=== PATIENT | male | born 1970 | race Hispanic/Latino ===

== ENCOUNTER → 2018-11-15 | Day surgery (SDC) | payer OTHER ==
[~2018-11-15] MED LIST: ASCORBIC ACID; BIOFLAVONOIDS; BIOTIN; FENTANYL CITRATE/PF 100MCG/2 ML INJ ONE; GABA; GLUCOSAMINE CH1 EAC2; GLYCOPYRROLATE INJ 1MG/ 5 ML SYR ONE; LYSINE; MIDAZOLAM HCL 2 MG/2 ML VIAL ONE; MULTIVITAMINS1 EAC7; PROPOFOL IV EMULSION 10 MG/ML 50 ML VIAL ONE; SERTRALINE HCL50 MG PO; SINGULAIR10 MG; TRUVADA 200 MG1 EACH; VALACYCLOVIR500 MG PO; ZYRTEC10 MG; [UNRECOGNIZED DRUG - OTHER]
--- OUTSIDE RECORDS SUMMARY | 2018-11-15 10:25 | XMS REPORT ---
Author Author Admin, [place] Organization [facility] Address [address] [place] [address] Phone Allergies, Adverse Reactions, Alerts Allergy Name Reaction Description Start Date Severity Status Provider No Known Allergies Tomer Reaves MD Conditions or Problems Problem Name Problem Code Onset Date Status Entry Date Provider Comment Standard Description Annotate Proctitis 569.49 Active Tomer Reaves MD Other specified disorders of rectum and anus Rectal bleeding 569.3 Active Tomer Reaves MD Hemorrhage of rectum and anus Screening, colon cancer V76.51 Active Tomer Reaves MD Screening for malignant neoplasms of colon Paronychia, finger 681.02 Active Tomer Reaves MD Onychia and paronychia of finger High risk sexual behavior V69.2 Active Stas YANG High-risk sexual behavior Urethritis 597.80 Active Stas YANG Urethritis, unspecified Erectile dysfunction 302.72 Active Tomer Reaves MD Psychosexual dysfunction with inhibited sexual excitement Medication, terminal supervisor use V58.6 Active Tomer Reaves MD Long-term (current) drug use Pre-Exposure Prophylaxis z72.52 V69.2 Active Tomer Reaves MD High-risk sexual behavior Screening for hyperlipidemia V77.91 Active Tomer Reaves MD Screening for lipoid disorders Preventive health care V70.0 Active Asher Leon Routine general medical examination at a health care facility Anxiety depression 300.4 Active Tomer Reaves MD Dysthymic disorder Genital herpes 054.10 Active Tomer Reaves MD Genital herpes, unspecified Seasonal allergies 477.9 Active Tomer Reaves MD Allergic rhinitis, cause unspecified Viral syndrome 079.89 Inactive Tomer Reaves MD Other specified viral infection Viral syndrome ICD-079.89 Inactive Tomer Reaves MD Conjunctivitis, acute, right 372.00 Inactive Tomer Reaves MD Acute conjunctivitis, unspecified Conjunctivitis, acute, right ICD-372.00 Inactive Tomer Reaves MD SCREENING EXAMINATION FOR VENEREAL DISEASE ICD-V74.5 Inactive Deshawn Garcia ENROBING MACHINE CORDER-C Abdominal pain 789.00 Inactive Tomer Reaves MD Abdominal pain, unspecified site Abdominal pain ICD-789.00 Inactive Tomer Reaves MD Viral syndrome 079.99 Inactive Tomer Reaves MD Unspecified viral infection Viral syndrome ICD-079.99 Inactive Tomer Reaves MD Pharyngitis ICD-462 Inactive Deshawn Garcia ENROBING MACHINE CORDER-C Dermatitis atopic ICD-691.8 Inactive Deshawn Garcia ENROBING MACHINE CORDER-C Fatigue 780.79 Inactive Tomer Reaves MD Other malaise and fatigue Fatigue ICD-780.79 Inactive Tomer Raeves MD CORNEAL ABRASION, LEFT 918.1 Inactive Tomer Reaves MD Superficial injury of cornea CORNEAL ABRASION, LEFT ICD-918.1 Inactive Tomer Reaves MD CHALAZION, LEFT ICD-373.2 Inactive Tomer Reaves MD SCREENING EXAMINATION FOR VENEREAL DISEASE V74.5 Resolved Deshawn Garcia ENROBING MACHINE CORDER-C Screening examination for venereal disease Pharyngitis 462 Resolved Deshawn Garcia ENROBING MACHINE CORDER-C Acute pharyngitis Dermatitis atopic 691.8 Resolved Deshawn Garcia ENROBING MACHINE CORDER-C Other atopic dermatitis and related conditions CHALAZION, LEFT 373.2 Ruled out Tomer Reaves MD Chalazion Medication List Medication Instructions Start Date Stop Date Generic Name NDC Status Provider Patient Instruction MONTELUKAST TAB 10MG TAKE ONE (1) TABLET(S) BY MOUTH ONCE A DAY. MONTELUKAST SODIUM 08609689843 Active Rachel Lobato MedAdherence Active TRUVADA TAB 200-300 TAKE ONE (1) TABLET(S) BY MOUTH DAILY. EMTRICITABINE-TENOFOVIR DF 56736480690 Active Tomer Reaves MD Active SERTRALINE TAB 50MG TAKE ONE (1) TABLET(S) BY MOUTH ONCE A DAY. SERTRALINE HCL 46480478397 Active Carla Le MedAdherence Active VARDENAFIL HCL 20 MG ORAL TABLET Take 1/2 to 1 tablet before sexual activity as needed VARDENAFIL HCL 77737331192 Active Tomer Reaves MD Active TRIAMCINOLONE ACETONIDE 0.1 % EXTERNAL CREAM apply to affected area twice a day TRIAMCINOLONE ACETONIDE 14761375872 Active Becca MALONE Active VALACYCLOVIR HCL 1 GM ORAL TABLET 1 By Mouth Twice a Day VALACYCLOVIR HCL 87666765725 Active Marcelino Boyle MD Active AZASITE 1 % OPHTHALMIC SOLUTION 1 drop in both eyes at night-- 3 times a week AZITHROMYCIN 33092975753 Active Marcelino Boyle MD Active KEFLEX 500 MG ORAL CAPSULE 1 by mouth 3 times a day KEFLEX 500 MG ORAL CAPSULE 064493 CEPHALEXIN Inactive OFLOXACIN 0.3 % OPHTHALMIC SOLUTION 1 drop in the right eye Four Times a Day OFLOXACIN 0.3 % OPHTHALMIC SOLUTION 546331 OFLOXACIN Inactive PREDNISOLONE ACETATE 1 % OPHTHALMIC SUSPENSION 1 drop in the right eye Four Times a Day-- begin 03/11/18. PREDNISOLONE ACETATE 1 % OPHTHALMIC SUSPENSION 5419753 PREDNISOLONE ACETATE Inactive VIAGRA 100 MG ORAL TABLET Take 1 tablet 1-2 hours before sexual activity as needed VIAGRA 100 MG ORAL TABLET 356134 SILDENAFIL CITRATE Inactive LOMOTIL 2.5-0.025 MG ORAL TABLET 2 by mouth stat, then 1 by mouth 4 times a day as needed LOMOTIL 2.5-0.025 MG ORAL TABLET 1565133 DIPHENOXYLATE-ATROPINE Inactive CIPRO 500 MG ORAL TABLET 1 by mouth twice a day CIPRO 500 MG ORAL TABLET 524117 CIPROFLOXACIN HCL Inactive TRIAMCINOLONE ACETONIDE 0.1 % EXTERNAL CREAM apply to affected area twice a day TRIAMCINOLONE ACETONIDE 0.1 % EXTERNAL CREAM 7414825 TRIAMCINOLONE ACETONIDE Inactive TOBRADEX 0.3-0.1 % OPHTHALMIC SUSPENSION 1 drop in the left eye Four Times a Day for a week. TOBRADEX 0.3-0.1 % OPHTHALMIC SUSPENSION 603598 TOBRAMYCIN-DEXAMETHASONE Inactive AZASITE 1 % OPHTHALMIC SOLUTION apply to eyelids Twice a Day AZASITE 1 % OPHTHALMIC SOLUTION AZITHROMYCIN Inactive DOXYCYCLINE HYCLATE 50 MG ORAL CAPSULE 1 By Mouth at night DOXYCYCLINE HYCLATE 50 MG ORAL CAPSULE 1460836 DOXYCYCLINE HYCLATE Inactive BACTRIM DS 800-160 MG ORAL TABLET 1 By Mouth Twice a Day for 7 days BACTRIM DS 800-160 MG ORAL TABLET 778694 SULFAMETHOXAZOLE-TRIMETHOPRIM Inactive KEFLEX 500 MG ORAL CAPSULE 1 by mouth 3 times a day CEPHALEXIN 05161804363 No Longer Active Tomer Reaves MD Active OFLOXACIN 0.3 % OPHTHALMIC SOLUTION 1 drop in the right eye Four Times a Day OFLOXACIN 43004776967 No Longer Active Tomer Reaves MD Active PREDNISOLONE ACETATE 1 % OPHTHALMIC SUSPENSION 1 drop in the right eye Four Times a Day-- begin 03/11/18. PREDNISOLONE ACETATE 68081420508 No Longer Active Tomer Reaves MD Active VIAGRA 100 MG ORAL TABLET Take 1 tablet 1-2 hours before sexual activity as needed SILDENAFIL CITRATE 64824741383 No Longer Active Tomer Reaves MD Active LOMOTIL 2.5-0.025 MG ORAL TABLET 2 by mouth stat, then 1 by mouth 4 times a day as needed DIPHENOXYLATE-ATROPINE 40981659645 No Longer Active Tomer Reaves MD Active CIPRO 500 MG ORAL TABLET 1 by mouth twice a day CIPROFLOXACIN HCL 03018830581 No Longer Active Tomer Reaves MD Active TRIAMCINOLONE ACETONIDE 0.1 % EXTERNAL CREAM apply to affected area twice a day TRIAMCINOLONE ACETONIDE 06161670186 No Longer Active Becca Moon KIRA Active TOBRADEX 0.3-0.1 % OPHTHALMIC SUSPENSION 1 drop in the left eye Four Times a Day for a week. TOBRAMYCIN-DEXAMETHASONE 95102693194 No Longer Active Marcelino Boyle MD Active AZASITE 1 % OPHTHALMIC SOLUTION apply to eyelids Twice a Day AZITHROMYCIN 42111818208 No Longer Active Marcelino Boyle MD Active DOXYCYCLINE HYCLATE 50 MG ORAL CAPSULE 1 By Mouth at night DOXYCYCLINE HYCLATE 43920781745 No Longer Active Marcelino Boyle MD Active BACTRIM DS 800-160 MG ORAL TABLET 1 By Mouth Twice a Day for 7 days SULFAMETHOXAZOLE-TRIMETHOPRIM 86118056350 No Longer Active Marcelino Boyle MD Active Advance Directives Directive Description Start Date DISCUSSED - NO DECISION MADE Immunizations Vaccine Administration Date Value Standard Description influenza immunization (Flu Vax) has been administered given elsewhere influenza virus vaccine, unspecified formulation hepatitis A immunization #1 given as Hep A/Hep B # 1. hepatitis A vaccine, unspecified formulation hepatitis B vaccine #3 given as Hep A/Hep B # 1. hepatitis B vaccine, unspecified formulation Twinrix, hepatitis A inactivated and hepatitis B (recombinant) vaccine, 1st dose given hepatitis A and hepatitis B vaccine hepatitis B vaccine #2 given given hepatitis B vaccine, unspecified formulation hepatitis B vaccine #1 given given hepatitis B vaccine, unspecified formulation Vital Signs Date Name Value Unit Range Description blood pressure, diastolic 74 mm[Hg] BP mauro blood pressure, systolic 154 mm[Hg] BP sys height E&M 71 [in_us] Bdy height pulse rate E&M 58 /min Heart rate temperature E&M 98.2 [degF] Body temperature weight E&M 188 [lb_av] Weight Measured blood pressure, diastolic 74 mm[Hg] BP mauro blood pressure, systolic 132 mm[Hg] BP sys height E&M 71 [in_us] Bdy height pulse rate E&M 56 /min Heart rate temperature E&M 98.5 [degF] Body temperature weight E&M 187 [lb_av] Weight Measured blood pressure, diastolic 67 mm[Hg] BP mauro blood pressure, systolic 125 mm[Hg] BP sys height E&M 71 [in_us] Bdy height pulse rate E&M 55 /min Heart rate temperature E&M 98.4 [degF] Body temperature weight E&M 185 [lb_av] Weight Measured blood pressure, diastolic 70 mm[Hg] BP mauro blood pressure, systolic 121 mm[Hg] BP sys height E&M 71 [in_us] Bdy height pulse rate E&M 48 /min Heart rate respiratory rate E&M 16 /min Resp rate temperature E&M 98.1 [degF] Body temperature weight E&M 186 [lb_av] Weight Measured blood pressure, diastolic 67 mm[Hg] BP mauro blood pressure, systolic 105 mm[Hg] BP sys height E&M 71 [in_us] Bdy height pulse rate E&M 52 /min Heart rate respiratory rate E&M 13 /min Resp rate temperature E&M 98.2 [degF] Body temperature weight E&M 182 [lb_av] Weight Measured blood pressure, diastolic 71 mm[Hg] BP mauro blood pressure, systolic 127 mm[Hg] BP sys height E&M 71 [in_us] Bdy height pulse rate E&M 72 /min Heart rate temperature E&M 98.7 [degF] Body temperature weight E&M 179.06 [lb_av] Weight Measured blood pressure, diastolic 72 mm[Hg] BP mauro blood pressure, systolic 117 mm[Hg] BP sys height E&M 71 [in_us] Bdy height pulse rate E&M 51 /min Heart rate respiratory rate E&M 16 /min Resp rate temperature E&M 96.9 [degF] Body temperature weight E&M 179 [lb_av] Weight Measured Diagnostic Results Date Name Value Unit Range Description Lab Report: TSH, Testosterone, Free, Direct - Chemistry thyroid stimulating hormone, serum 0.967 u[iU]/mL 0.450-4.500 Lab Report: Comp. Metabolic Panel (14), Lipid Panel, Panel [id number] - Chemistry very low density lipoproteins 14 mg/dL 5-40 Lab Report: CBC With Differential/Platelet, Comp. Metabolic Panel (14), ... - Chemistry hepatitis B surface antigen Negative Negative Lab Report: Comp. Metabolic Panel (14), RPR, Rfx Qn RPR/Confirm TP, Pane ... - Chemistry chloride, serum 100 mmol/L 96-106 Office Visit: Acute Visit: Viral syndrome, on PREP, labs ordered - Chemistry HIV rapid test results negative Lab Report: Comp. Metabolic Panel (14), Hep B Surface Ab, RPR, Rfx Qn RP ... - Microbiology hepatitis A antibody, total Negative Negative Lab Report: Comp. Metabolic Panel (14), RPR, Rfx Qn RPR/Confirm TP, Pane ... - Chemistry urea nitrogen, blood 32 mg/dL 6-24 Lab Report: CBC With Differential/Platelet, Comp. Metabolic Panel (14), ... - Hematology mean corpuscular hemoglobin concentration, RBC 35.1 G/DL % 31.5-35.7 erythrocyte (RBC) count 4.83 X10E6/UL 10*6/mm3 4.14-5.80 Lab Report: CBC With Differential/Platelet, Comp. Metabolic Panel (14), ... - Serology hepatitis C antibody, serum <0.1 0.0-0.9 Lab Report: CBC With Differential/Platelet, Comp. Metabolic Panel (14), ... - Chemistry Absolute Neutrophils 4.7 X10E3/UL 10*3/uL 1.4-7.0 Lab Report: Comp. Metabolic Panel (14), Lipid Panel, Panel [id number] - Chemistry LDL cholesterol, serum 91 mg/dL 0-99 Lab Report: Comp. Metabolic Panel (14), RPR, Rfx Qn RPR/Confirm TP, Pane ... - Chemistry urea nitrogen/creatinine ratio, serum 32 9-20 Lab Report: CBC With Differential/Platelet, Comp. Metabolic Panel (14), ... - Hematology mean corpuscular volume, RBC 93 fL 79-97 Lab Report: Comp. Metabolic Panel (14), Lipid Panel, Panel [id number] - Chemistry HDL cholesterol, serum 52 mg/dL >39 Lab Report: CBC With Differential/Platelet, Comp. Metabolic Panel (14), ... - Hematology monocytes as percent of blood leukocytes 11 % Lab Report: Comp. Metabolic Panel (14), RPR, Rfx Qn RPR/Confirm TP, Pane ... - Chemistry creatinine, serum 1.00 mg/dL 0.76-1.27 albumin/globulin ratio, serum 2.2 1.2-2.2 Lab Report: Comp. Metabolic Panel (14), Lipid Panel, Panel [id number] - Chemistry cholesterol, serum 157 mg/dL 100-199 Lab Report: Comp. Metabolic Panel (14), RPR, Rfx Qn RPR/Confirm TP, Pane ... - Chemistry bilirubin, serum, total 0.7 mg/dL 0.0-1.2 Lab Report: CBC With Differential/Platelet, Comp. Metabolic Panel (14), ... - Hematology Eosinophil Absolute Count 0.0 X10E3/UL 10*3/uL 0.0-0.4 Lab Report: Chlamydia/GC Amplification, Ct/GC GHANSHYAM, Rectal, Ct/GC GHANSHYAM, Ph ... - Lab chlamydia DNA probe Negative Negative Lab Report: Comp. Metabolic Panel (14), RPR, Rfx Qn RPR/Confirm TP, Pane ... - Chemistry aspartate aminotransferase (SGOT), serum 27 U/L 0-40 Lab Report: Ct/GC GHANSHYAM, Rectal, HSV Culture and Typing - Microbiology HERPES SIMPLEX VIRUS IDENTIFIED (PT; XXX; QL; ) HSVN Lab Report: CBC With Differential/Platelet, Comp. Metabolic Panel (14), ... - Hematology red blood cell distribution width 12.8 % 12.3-15.4 leukocyte count, blood 6.6 X10E3/UL 10*3/mm3 3.4-10.8 Lab Report: Comp. Metabolic Panel (14), RPR, Rfx Qn RPR/Confirm TP, Pane ... - Chemistry potassium, serum 4.5 mmol/L 3.5-5.2 albumin, serum 4.7 g/dL 3.5-5.5 Lab Report: Chlamydia/GC Amplification, Ct/GC GHANSHYAM, Rectal, Ct/GC GHANSHYAM, Ph ... - Microbiology Neisseria gonorrhoeae, throat culture Positive Negative Lab Report: CBC With Differential/Platelet, Comp. Metabolic Panel (14), ... - Chemistry immature granulocytes, percentage of total cells, blood 0 % Lab Report: CBC With Differential/Platelet, Comp. Metabolic Panel (14), ... - Hematology lymphocyte count, blood, automated 1.1 X10E3/UL 10*3/mm3 0.7-3.1 Lab Report: Chlamydia/GC Amplification, Ct/GC GHANSHYAM, Rectal, Ct/GC GHANSHYAM, Ph ... - Microbiology Neisseria gonorrhoeae DNA probe Negative Negative Lab Report: CBC With Differential/Platelet, Comp. Metabolic Panel (14), ... - Hematology hematocrit, blood 45.0 % 37.5-51.0 Lab Report: Comp. Metabolic Panel (14), RPR, Rfx Qn RPR/Confirm TP, Pane ... - Chemistry sodium, serum 142 mmol/L 134-144 Lab Report: Chlamydia/GC Amplification, Ct/GC GHANSHYAM, Rectal, Ct/GC GHANSHYAM, Ph ... - Urinalysis urine culture No growth Lab Report: CBC With Differential/Platelet, Comp. Metabolic Panel (14), ... - Chemistry infectious mononucleosis screen Negative Negative Lab Report: CBC With Differential/Platelet, Comp. Metabolic Panel (14), ... - Hematology neutrophils as percent of blood leukocytes 73 % basophils as percent of blood leukocytes 0 % Lab Report: CBC With Differential/Platelet, Comp. Metabolic Panel (14), ... - Serology HIV-1RNA, serum, by PCR, quantitative <20 copies/mL {Copies}/mL Lab Report: Comp. Metabolic Panel (14), RPR, Rfx Qn RPR/Confirm TP, Pane ... - Serology rapid plasma reagin antibody, serum Non Reactive Non Reactive Lab Report: Comp. Metabolic Panel (14), RPR, Rfx Qn RPR/Confirm TP, Pane ... - Chemistry carbon dioxide, venous blood 27 mmol/L 20- Lab Report: Comp. Metabolic Panel (14), Hep B Surface Ab, RPR, Rfx Qn RP ... - Serology hepatitis B core antibody, total Negative Negative Lab Report: Comp. Metabolic Panel (14), Lipid Panel, Panel [id number] - Chemistry triglyceride, serum, fasting 72 mg/dL 0-149 Lab Report: Comp. Metabolic Panel (14), RPR, Rfx Qn RPR/Confirm TP, Pane ... - Chemistry calcium, serum 9.8 mg/dL 8.7-10.2 alanine aminotransferase (SGPT), serum 29 U/L 0-44 Lab Report: CBC With Differential/Platelet, Comp. Metabolic Panel (14), ... - Hematology mean corpuscular hemoglobin, RBC 32.7 pg 26.6-33.0 Lab Report: Comp. Metabolic Panel (14), RPR, Rfx Qn RPR/Confirm TP, Pane ... - Chemistry protein, total, serum 6.8 g/dL 6.0-8.5 alkaline phosphatase, serum 73 U/L 39-117 Lab Report: CBC With Differential/Platelet, Comp. Metabolic Panel (14), ... - Hematology hemoglobin, blood 15.8 g/dL 12.6-17.7 lymphocytes as percent of blood leukocytes 16 % Lab Report: Comp. Metabolic Panel (14), RPR, Rfx Qn RPR/Confirm TP, Pane ... - Genetics/fertility eGFR if 101 mL/min/1.73m2 >59 Lab Report: CBC With Differential/Platelet, Comp. Metabolic Panel (14), ... - Hematology basophil count, absolute 0.0 x10E3/uL 0.0-0.2 Lab Report: Ct/GC GHANSHYAM, Rectal - Basic GC Rectum Positive Negative Lab Report: Comp. Metabolic Panel (14), RPR, Rfx Qn RPR/Confirm TP, Pane ... - Chemistry globulin, serum 2.1 1.5-4.5 Estimated Glomerular Filtration Rate (calc) 87 mL/min/1.73m2 >59 Lab Report: TSH, Testosterone, Free, Direct - Chemistry testosterone, serum, free 7.5 pg/mL 6.8-21.5 Lab Report: Comp. Metabolic Panel (14), Hep B Surface Ab, RPR, Rfx Qn RP ... - Serology hepatitis B surface antibody Non Reactive Lab Report: CBC With Differential/Platelet, Comp. Metabolic Panel (14), ... - Hematology eosinophils as percent of blood leukocytes 0 % Lab Report: Comp. Metabolic Panel (14), RPR, Rfx Qn RPR/Confirm TP, Pane ... - Chemistry blood glucose, random 99 mg/dL 65-99 Lab Report: CBC With Differential/Platelet, Comp. Metabolic Panel (14), ... - Hematology monocyte count, blood, automated 0.7 X10E3/UL 10*3/uL 0.1-0.9 platelet count 283 X10E3/UL 10*3/mm3 150-379 Encounters Date Encounter Provider Code Facility 10:35:24 CDT Ofc Vst, Est Level III Tomer Reaves MD CPT-59156 [facility] 12:05:59 CDT Ofc Vst, Est Level IV Tomer Reaves MD CPT-61288 [facility] 12:47:12 FIREBRICK LAYER Ofc Vst, Est Level IV Tomer Reaves MD CPT-18680 [facility] 12:24:01 FIREBRICK LAYER Ofc Vst, Est Level IV Tomer Reaves MD CPT-40469 [facility] 19:37:25 CDT Est Patient Exp Problem - 68482 Stas YANG CPT-60497 [facility] 16:45:20 CDT Est Patient Exp Problem - 75692 Deshawn WeinerEliecer ENROBING MACHINE CORDER-C CPT-82997 [facility] 14:58:25 CDT Ofc Vst, Est Level IV Tomer Reaves MD CPT-25409 [facility] 12:02:11 [employer]REBRICK LAYER Ofc Vst, Est Level IV Tomer Reaves MD CPT-73302 [facility] 10:20:07 FIREBRICK LAYER Est Patient Exp Problem - 75864 Chau Dallas [employer]CHER AIRCRAFT-C CPT-60699 [facility] 09:15:44 FIREBRICK LAYER Ofc Vst, Est Level IV Tomer Reaves MD CPT-78078 [facility] 11:37:34 CDT Ofc Vst, Est Level III Tomer Reaves MD CPT-55901 [facility] 11:14:11 CDT Ofc Vst, Est Level IV Tomer Reaves MD CPT-60626 [facility] 15:03:52 CDT Est Patient Detailed - 48459 Terrie Weaver MD CPT-60275 [facility] 14:50:28 CDT Ofc Vst, Est Level IV Tomer Reaves MD CPT-93041 [facility] 13:59:26 CDT Ofc Vst, Est Level IV Tomer Reaves MD CPT-72438 [facility] 12:03:52 CDT Ofc Vst, Est Level IV Tomer Reaves MD CPT-47477 [facility] 12:19:25 FIREBRICK LAYER Ofc Vst, Est Level III Becca Moon ENROBING MACHINE CORDER CPT-40032 [facility] 15:51:44 FIREBRICK LAYER Est Patient Nurse - Only Visit - 95513 Dayanara Arzola RN CPT-29940 [facility] 11:01:40 [employer] LAYER Ofc Vst, Est Level IV Tomer Reaves MD CPT-92402 [facility] 14:23:59 CDT Ofc Vst, New Level III Tomer Reaves MD CPT-09016 [facility] Procedures Code Procedure Name Date Entry Date Standard Description CPT-29794 IM Injection of Antibiotic 10:35:24 CDT CPT-J0696 Injection, ceftriaxone sodium, per 250 mg 10:35:24 CDT CPT-J8499 Azithromycin oral 10:35:23 CDT CPT-81545 IM or SQ Injection 19:37:25 CDT CPT-J0696 Injection, ceftriaxone sodium, per 250 mg 19:37:25 CDT CPT-J8499 Oral / SL / DE 19:37:25 CDT CPT-J8499 Azithromycin oral 19:37:24 CDT CPT-11139 Alere Determine HIV-1/2 Ag/Ab Combo - In House 16:45:18 CDT CPT-02729 Est Patient Intermediate [facility] - [address] 09:53:00 CDT CPT-33065 Twinrix - Adult 15:04:05 CDT CPT-40610 Admin of Vaccine - Injection - 1 15:04:05 CDT CPT-J0696 Injection, ceftriaxone sodium, per 250 mg 14:58:23 CDT CPT-J8499 Azithromycin oral 14:58:22 CDT CPT-86931 Handling of specimen for transfer 15:03:52 CDT CPT-02558 Venipuncture 15:03:52 CDT CPT-87246 [place] HIV - In House 15:03:49 CDT CPT-45920 Hepatitis B - Adult 10:52:14 FIREBRICK LAYER CPT-HE001 Health Education/Supportive Counseling 13:00:38 [employer]ICK LAYER CPT-HE001 Health Education/Supportive Counseling 08:41:15 [employer] LAYER CPT-HE001 Health Education/Supportive Counseling 16:16:12 FIREBRICK LAYER CPT-HE001 Health Education/Supportive Counseling 12:51:22 [employer]AYER CPT-08010 Hepatitis B - Adult 10:51:47 FI[employer]BRICK LAYER CPT-HE001 Health Education/Supportive Counseling 12:41:20 [employer]BRICK LAYER CPT-47894 EXC CHALAZION 1 10:05:59 CDT CPT-12563 Est Patient Intermediate Opth - 45861 10:05:59 CDT CPT-99439 Est Patient Intermediate Opth - 77031 10:32:41 FIREBRICK LAYER CPT-00283 Est Patient Intermediate Opth - 56363 14:09:35 FIREBRICK LAYER CPT-24492 EXC CHALAZION 1 16:07:31 CDT CPT-96024 Est Patient Intermediate Opth - 84904 16:07:31 CDT CPT-12039 Est Patient Intermediate Opth - 99568 12:13:08 CDT
[2018-11-15 16:20] VITALS: BP 110/69
== END | disposition home or self-care (01) ==
LOC: OR 10:22
PROVIDERS: ATTEND Internal Medicine Gastroenterology
DX: Z12.11 Encounter for screening for malignant neoplasm of colon (principal); D12.2 Benign neoplasm of ascending colon; K92.1 Melena; K63.89 Other specified diseases of intestine; K64.8 Other hemorrhoids; R00.1 Bradycardia, unspecified; F41.9 Anxiety disorder, unspecified; F32.9 Major depressive disorder, single episode, unspecified; Z01.810 Encounter for preprocedural cardiovascular examination
CPT/HCPCS: 45385; 93005; J2250; J2704; J3490; 45378